=== PATIENT | male | born 1990 | race Two or more races ===

== ENCOUNTER 2020-06-10 07:55 | Emergency (ER) | payer OTHER, SELFPAY ==
[2020-06-10 08:10] VITALS: BP 136/68; PULSE 72; RESP 16; TEMP 37.3; O2SAT 97; BMI 23.3
--- NOTE | 2020-06-10 08:11 | XR_ITS ---
EXAMINATION: LEFT HAND/WRIST CLINICAL INFORMATION: Left hand/wrist pain. COMPARISON: None TECHNIQUE: 4 views. FINDINGS: There is no visible acute fracture, dislocation or subluxation. The joint spaces are maintained normal. No bony erosive changes. No soft tissue edema or calcification. The left wrist joint is unremarkable as well. XR/XR hand wrist LT IMPRESSION: Unremarkable left hand/wrist.
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
--- NOTE | 2020-06-10 08:13 | PC.NURSE ---
provider at bedside for primary eval.
== END 2020-06-10 09:11 | disposition home or self-care (01) ==
PROVIDERS: Emergency Provider Emergency Medicine Emergency Medical Services
DX: S63.502A Unspecified sprain of left wrist, initial encounter (principal); M25.532 Pain in left wrist; M79.642 Pain in left hand; X58.XXXA Exposure to other specified factors, initial encounter; Y93.9 Activity, unspecified; Y92.9 Unspecified place or not applicable; Y99.9 Unspecified external cause status; Z87.891 Personal history of nicotine dependence
CPT/HCPCS: 73110; 73130; 99283

== ENCOUNTER 2022-03-10 20:57 | Emergency (ER) | payer SELFPAY ==
--- NOTE | ~2022-03-10 | CT_ITS ---
EXAMINATION: NONCONTRAST HEAD CT NONCONTRAST CERVICAL SPINE CT INDICATION INFORMATION: Fall COMPARISON: None TECHNIQUE: Separate noncontrast CT examinations of the head and cervical spine were performed. Coronal and sagittal images were created for each examination at the technologist workstation. This CT examination was performed using dose optimization techniques as appropriate, variously including the following: *Automated exposure control *Adjustment of mA and/or kV according to patient size (this includes techniques or standardized protocols for targeted exams where dose is matched to indication/reason for exam; i.e. extremities or head) *Use of iterative reconstruction technique DLP: 1056 mGy-cm FINDINGS: Head: There is no evidence of acute intracranial hemorrhage or territorial infarction. No abnormal mass effect or midline shift is seen. Arellano to white matter differentiation is well preserved. No extra-axial fluid collections are identified. No hydrocephalus. No significant volume loss. There is no abnormal attenuation within the brain parenchyma. No acute osseous or soft tissue abnormality. The mastoid air cells and visualized portions of the paranasal sinuses are well aerated. Cervical spine: There is anatomic alignment of the vertebral bodies and posterior elements. The atlantoaxial and atlantooccipital articulations are intact. Vertebral body heights and intervertebral disc spaces are maintained. No evidence of acute fracture. No prevertebral soft tissue swelling. Visualized portions of the lung apices are unremarkable. The thyroid gland is unremarkable. CT/CT head/brain wo IV con IMPRESSION: 1. No acute intracranial finding. 2. No fracture or malalignment of the cervical spine.
--- NOTE | ~2022-03-10 | CT_ITS ---
EXAMINATION: NONCONTRAST HEAD CT NONCONTRAST CERVICAL SPINE CT INDICATION INFORMATION: Fall COMPARISON: None TECHNIQUE: Separate noncontrast CT examinations of the head and cervical spine were performed. Coronal and sagittal images were created for each examination at the technologist workstation. This CT examination was performed using dose optimization techniques as appropriate, variously including the following: *Automated exposure control *Adjustment of mA and/or kV according to patient size (this includes techniques or standardized protocols for targeted exams where dose is matched to indication/reason for exam; i.e. extremities or head) *Use of iterative reconstruction technique DLP: 1056 mGy-cm FINDINGS: Head: There is no evidence of acute intracranial hemorrhage or territorial infarction. No abnormal mass effect or midline shift is seen. Arellano to white matter differentiation is well preserved. No extra-axial fluid collections are identified. No hydrocephalus. No significant volume loss. There is no abnormal attenuation within the brain parenchyma. No acute osseous or soft tissue abnormality. The mastoid air cells and visualized portions of the paranasal sinuses are well aerated. Cervical spine: There is anatomic alignment of the vertebral bodies and posterior elements. The atlantoaxial and atlantooccipital articulations are intact. Vertebral body heights and intervertebral disc spaces are maintained. No evidence of acute fracture. No prevertebral soft tissue swelling. Visualized portions of the lung apices are unremarkable. The thyroid gland is unremarkable. CT/CT cervical spine wo IV con IMPRESSION: 1. No acute intracranial finding. 2. No fracture or malalignment of the cervical spine.
[2022-03-10 21:49] VITALS: BP 132/70; PULSE 74; RESP 16; TEMP 37.5; O2SAT 97; BMI 24.2
--- NOTE | 2022-03-10 22:30 | PC.NURSE ---
this nurse and tech answered call in the [facility] bathroom, pt was laying on the floor of the bathroom, denied falling stated he was just too weak to walk back to the wr. pt was helped up put into a wheelchair. provider notified
== END 2022-03-11 01:58 | disposition left against medical advice (07) ==
PROVIDERS: Emergency Provider Emergency Medicine
DX: R11.2 Nausea with vomiting, unspecified (principal); R53.1 Weakness; Z03.89 Encounter for observation for other suspected diseases and conditions ruled out
CPT/HCPCS: 70450; 72125; 99281; 99284